=== PATIENT | female | born 1990 | race Caucasian/White ===

== ENCOUNTER → 2017-11-02 | Emergency (ER) | payer OTHER ==
[~2017-11-02] VITALS: Ht 160 cm; Wt 86.6 kg
== END | disposition home or self-care (01) ==
LOC: ER 20:38
DX: Z34.01 Encounter for supervision of normal first pregnancy, first trimester (principal); R10.2 Pelvic and perineal pain

== ENCOUNTER 2022-04-02 07:56 | Emergency (ER) | payer OTHER ==
[~2022-04-02] VITALS: Ht 160 cm; Wt 98.0 kg
[2022-04-02] MEDS ORDERED: KETO10TA2 PO (11:26)
[2022-04-02] MEDS ORDERED: MAXITROL EYE DRO5 ML OP (11:26)
== END 2022-04-02 11:31 | disposition home or self-care (01) ==
LOC: ER 07:56
DX: R10.2 Pelvic and perineal pain (principal); D25.9 Leiomyoma of uterus, unspecified

== ENCOUNTER 2022-08-28 13:33 | Emergency (ER) | payer OTHER ==
[~2022-08-28] VITALS: Ht 160 cm; Wt 95.7 kg
[~2022-08-28 13:33] MED LIST: KETO10TA2 PO; MAXITROL EYE DRO5 ML OP
== END 2022-08-28 15:58 | disposition home or self-care (01) ==
LOC: ER 13:33
DX: B34.9 Viral infection, unspecified (principal); F41.8 Other specified anxiety disorders; Z20.822 Contact with and (suspected) exposure to COVID-19

== ENCOUNTER 2023-04-05 20:43 | Emergency (ER) | payer OTHER ==
[~2023-04-05] VITALS: Ht 160 cm; Wt 95.3 kg
[2023-04-07] MEDS ORDERED: LEVSIN/SL0.125 MG SL (04:03)
[2023-04-07] MEDS ORDERED: PEPCID40 MG PO (04:03)
[2023-04-07] MEDS ORDERED: DOLOGESIC-DF 51 EACH PO (04:04)
== END 2023-04-05 22:32 | disposition home or self-care (01) ==
LOC: ER 20:43
PROVIDERS: General Practice
DX: J10.1 Influenza due to other identified influenza virus with other respiratory manifestations (principal); Z20.822 Contact with and (suspected) exposure to COVID-19

== ENCOUNTER 2023-08-08 10:35 | Emergency (ER) | payer OTHER ==
[~2023-08-08] VITALS: Ht 162.6 cm; Wt 95.3 kg
[~2023-08-08 10:35] MED LIST changes: +DOLOGESIC-DF 51 EACH PO; +LEVSIN/SL0.125 MG SL; +PEPCID40 MG PO
== END 2023-08-08 12:32 | disposition home or self-care (01) ==
LOC: ER 10:36
DX: J02.9 Acute pharyngitis, unspecified (principal); Z20.822 Contact with and (suspected) exposure to COVID-19

== ENCOUNTER 2025-06-24 03:07 | Emergency (ER) | payer OTHER ==
[~2025-06-24] VITALS: Ht 160 cm; Wt 99.8 kg
[2025-06-24 03:36] VITALS: BP 126/82; O2SAT 99
[2025-06-24] MEDS ORDERED: ORPHENADRINE CITRATE 30 MG/ML AMPUL IM STA (03:50)
[2025-06-24] MEDS ORDERED: DEXAMETHASONE SODIUM PHOSPHATE 4 MG/ML VIAL IM STA (03:50)
[2025-06-24] MEDS ORDERED: KETOROLAC TROMETHAMINE 30 MG VIAL IM STA (03:51)
[2025-06-24] MEDS ORDERED: DIPHENHYDRAMINE HCL 50 MG/ML VIAL 1ML IV STA (03:51)
[2025-06-24 06:43] LABS: BASO % 0.5 % (0.1-1.2); EOS # 0.09 (0.04-0.54); EOS % 1.6 % (0.7-7.0); LYMPH # 2.16 (1.18-3.74); LYMPH % 39.3 % (19.3-53.1); MEAN PLATELET VOLUME 11.30 fl (9.4-12.4); MONO # 0.46 (0.24-0.82); MONO % 8.4 % (4.7-12.5); NEUT # 2.74 (1.56-6.13); NEUT % 50.0 % (34.0-71.1); RED CELL DISTRIBUTION WIDTH 12.8 % (11.6-14.4)
[2025-06-24 07:03] LABS: INR 0.98
[2025-06-24 07:06] LABS: ALT/SGPT 30.0 U/L (12-78); AST/SGOT 20.0 U/L (15-37); BILIRUBIN TOTAL 0.32 mg/dL (0.3-1.2); BUN CREA RATIO 15.0 (7.0-25.0); CREATININE SERUM 0.68 mg/dL (0.55-1.02); GFR 97.9; GLOBULINA 4.0 G/DL (2.4-3.5); GLUCOSE FASTING 110.0 mg/dL (65-100); OSMOLALITY SERUM 281.0 MOSM/KG (275-295)
== END 2025-06-24 11:33 | disposition home or self-care (01) ==
LOC: ER 03:08
PROVIDERS: Physician Assistant Medical
DX: S09.8XXA Other specified injuries of head, initial encounter (principal); W18.39XA Other fall on same level, initial encounter; Y93.89 Activity, other specified; Y92.018 Other place in single-family (private) house as the place of occurrence of the external cause; S49.81XA Other specified injuries of right shoulder and upper arm, initial encounter; E16.1 Other hypoglycemia